=== PATIENT | male | born 1945 | race Caucasian/White ===

== ENCOUNTER → 2019-01-14 | Outpatient (CLI) | payer MEDICARE, OTHER | LOC: COL.RAD 12:30 | DX: J98.6 Disorders of diaphragm (principal); R06.02 Shortness of breath ==

== ENCOUNTER 2019-03-04 13:00 | Outpatient (RCR) | payer MEDICARE, OTHER ==
[2019-03-04] VITALS (7 sets, daily range): BP systolic 100–117; BP diastolic 58–68; PULSE 68–84; TEMP 97.8–98
[~2019-03-04 13:00] MED LIST: ASPIRIN 81M81 MG/TA2 PO; COREG12.5 MG PO; COZAAR100 MG PO; FLONASE NASAL S16 GM NS; GLEEVEC100 MG PO; SINGULAIR 110 MG/TAB PO; ZYLOPRIM 300MG300 MG PO; ZYRTEC 10MG10 MG PO
== END 2019-03-04 18:30 | disposition home or self-care (01) ==
LOC: EUO 13:00
DX: D61.818 Other pancytopenia (principal)
CPT/HCPCS: J7050; P9040

== ENCOUNTER 2019-04-02 13:00 | Outpatient (RCR) | payer MEDICARE, OTHER ==
[~2019-04-02] VITALS: Ht 180.3 cm; Wt 88.7 kg
[2019-04-02] VITALS (9 sets, daily range): BP systolic 120–137; BP diastolic 66–82; PULSE 75–84; TEMP 97.6–98.1
[~2019-04-02 13:00] MED LIST changes: +JAKAFI5 MG PO
--- NOTE | 2019-04-02 19:26 | NUR ---
PT TOLERATED INFUSION WITH NO SIDE EFFECTS. PT WAS DISCHARGED VIA W/C TO THE CARE OF FAMILY IN PRIVATE VEHICLE.
== END 2019-04-02 19:20 | disposition home or self-care (01) ==
LOC: EUO 13:00
DX: D64.9 Anemia, unspecified (principal)
CPT/HCPCS: J7050; P9040

== ENCOUNTER → 2020-09-25 | Outpatient (CLI) | payer MEDICARE, OTHER ==
[~2020-09-25] MED LIST changes: +ASPIRIN E.C. 8181 MG PO; +NORCO 325 MG-51 TAB PO
== END ==
LOC: COL.LAB 22:31
PROVIDERS: Surgery
DX: D69.6 Thrombocytopenia, unspecified (principal)

== ENCOUNTER 2020-09-27 12:14 | Day surgery (SDC) | payer MEDICARE, OTHER ==
[2020-09-25 11:11] LABS: MEAN CELL VOLUME 93 fl (80.0-100.0); MEAN CORPUSCULAR HGB CONC 29 g/dl (33.0-37.0); PLATELET COUNT 59 K/mm3 (130-400); RED BLOOD COUNT 3.34 M/mm3 (4.20-5.60); REDCELL DISTRIBUTION WIDTH-CV 21.1 % (11.5-14.5)
[2020-09-25 11:12] LABS: HEMATOCRIT 31.1 % (42.0-52.0); HEMOGLOBIN 9.1 g/dl (13.5-18.0); MEAN CORPUSCULAR HEMOGLOBIN 27 pg (27.0-31.0)
[~2020-09-27] VITALS: Ht 180.3 cm; Wt 90.3 kg
[2020-09-27] VITALS (11 sets, daily range): BP systolic 121–143; BP diastolic 58–78; PULSE 77–83; TEMP 97.4–97.7
[~2020-09-27 12:14] MED LIST changes: -ASPIRIN E.C. 8181 MG PO; -NORCO 325 MG-51 TAB PO
[2020-09-27] MEDS ORDERED: ASPIRIN E.C. 8181 MG PO (12:52)
--- NOTE | 2020-09-27 16:15 | NUR ---
Patient up from OR. Alert and oriented x 3. Assessment complete. Incision site with scant drainage present. SCds to BLE. Fluids infusing per orders. Post op VSS. Denies pain or further needs at this time.
--- NOTE | 2020-09-27 19:08 | NUR ---
Patient has done well throughout the afternoon, minimal pain, has been up to restroom with stand by assist and steady gait. Denies further needs at this time. Will report off to retail shift leader.
--- NOTE | 2020-09-27 22:26 | NUR ---
PATIENT RESTING IN BED. PATIENT GOT UP TO USE BATHROOM AND AMBULATED WELL. PATIENT DENIES PAIN OR ANY FURTHER NEEDS.
[2020-09-28] VITALS: BP 137/69; PULSE 76; TEMP 97.9
[2020-09-28 04:00] VITALS: BP 135/68; PULSE 72; TEMP 97.4
--- NOTE | 2020-09-28 06:23 | NUR ---
PATIENT SLEPT WELL THROUGHOUT THE NGHT WITH NO COMPLAINTS OF PAIN.
[2020-09-28 06:34] LABS: MEAN CELL VOLUME 92 fl (80.0-100.0); MEAN CORPUSCULAR HGB CONC 30 g/dl (33.0-37.0); PLATELET COUNT 57 K/mm3 (130-400); RED BLOOD COUNT 2.98 M/mm3 (4.20-5.60); REDCELL DISTRIBUTION WIDTH-CV 20.8 % (11.5-14.5)
[2020-09-28 06:42] LABS: HEMATOCRIT 27.5 % (42.0-52.0); HEMOGLOBIN 8.2 g/dl (13.5-18.0); MEAN CORPUSCULAR HEMOGLOBIN 28 pg (27.0-31.0)
[2020-09-28 07:46] VITALS: BP 158/67; PULSE 81; TEMP 97.5
--- NOTE | 2020-09-28 09:10 | NUR ---
Initial visit; Patient thanked Flight Crew Ordnanceman for looking in on him and offering encouragement and God's blessings.
--- NOTE | 2020-09-28 09:56 | NUR ---
Barista met with patient to discuss discharge plan. Patient lives in [place], [place] with his , Ida (ph#[phone]). Patient sees Dr. Zelaya for primary care and obtains medications from [facility] in [place] with no difficulties. Patient does not use any DME and reports independence with ADLS. Patient states he has DPOA-HC completed, but SW did not locate copy in EMR. Patient reports he will be in later to pick him up to go home. Patient has been ambulating independently. No needs identified at this time.
--- NOTE | 2020-09-28 11:00 | NUR ---
Patient is doing well. Denies nausea. Minimal complaints of pain. Encouarged patient to walk in the halls. Dressing to right groin C/D/I. Patient is hoping to go home today. No other changes at this time. Call light within reach.
[2020-09-28 11:47] VITALS: BP 133/70; PULSE 71; TEMP 97.5
[2020-09-28] MEDS ORDERED: NORCO 325 MG-51 TAB PO (15:02)
--- NOTE | 2020-09-28 16:00 | NUR ---
Patient is discharge home. Discharge instructions discussed with patient. NO questions verbalized. INT's discontinued. Explained when follow up appointment is. Explained He has a prescription for [place] at the pharmacy. Copies of discharge instructions sent with patient. All belongings packed up by patient. Patient walked out via wheel chair by Freida ZHANG.
== END 2020-09-28 16:00 | disposition home or self-care (01) ==
LOC: SURG 12:14 → SDCO 12:14 → SURG 17:44 → SDCO 09-28 16:00
PROVIDERS: Nurse Anesthetist, Certified Registered; Surgery
DX: K40.90 Unilateral inguinal hernia, without obstruction or gangrene, not specified as recurrent (principal); D75.89 Other specified diseases of blood and blood-forming organs; D69.3 Immune thrombocytopenic purpura; R16.1 Splenomegaly, not elsewhere classified; I10 Essential (primary) hypertension; J30.2 Other seasonal allergic rhinitis; M10.9 Gout, unspecified; Z79.899 Other long term (current) drug therapy; Z88.0 Allergy status to penicillin; Z88.6 Allergy status to analgesic agent
CPT/HCPCS: OP; C1781; J1100; J1885; J2405; J2704; J3010; J3475; J7120; P9035; P9037